=== PATIENT | male | born 1965 | race Two or more races ===

== ENCOUNTER 2017-01-14 08:58 | Emergency (ER) | payer OTHER ==
[2017-01-14 09:07] VITALS: BP 143/96; PULSE 90; TEMP 97.7; BMI 26.4
[2017-01-14] MEDS ORDERED: CYCLOBENZAPRINE HCL 10 MG TABLET (FP) PO ONE (10:05)
[2017-01-14] MEDS ORDERED: KETOROLAC TROMETHAMINE 60 MG/2 ML VIAL IM ONE (10:05)
[2017-01-14] MEDS ORDERED: KETOROLAC TROMETHAMINE 60 MG/2 ML VIAL ONE (10:09)
[2017-01-14] MEDS ORDERED: CYCLOBENZAPRINE HCL 10 MG TABLET (FP) ONE (10:10)
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
== END 2017-01-14 11:25 | disposition home or self-care (01) ==
LOC: JERFT 08:58
PROC: 3E0233Z Introduction of Anti-inflammatory into Muscle, Percutaneous Approach (ICD-10-PCS; principal; 2017-01-14)
DX: M54.2 Cervicalgia (principal); M54.5 Low back pain; F17.210 Nicotine dependence, cigarettes, uncomplicated; V43.52XA Car driver injured in collision with other type car in traffic accident, initial encounter; Y92.414 Local residential or business street as the place of occurrence of the external cause; Y93.89 Activity, other specified; Y99.9 Unspecified external cause status
CPT/HCPCS: 72050-TC; 72100-TC; 72170-TC; 99281-25

== ENCOUNTER 2019-08-16 09:24 | Emergency (ER) | payer OTHER ==
[2019-08-16 09:27] VITALS: BMI 25.1
--- NOTE | 2019-08-16 10:22 | PDOC ---
History of Present Illness - General Chief Complaint: Chest Pain Stated Complaint: CHEST PAIN Time Seen by Provider: 08/16/19 10:22 History Source: Patient Exam Limitations: No Limitations - History of Present Illness Initial Comments: 08/16/19 10:34 54yM w PMHx DM HTN HLD herniated disk BPH current smoker presenting w 1wk progressive worsening L sided sharp stabbing chest pain and L arm weakness/mild pain/paresthesias. Relieved w exertion. Not associated w position. Never had this kind of pain before. Took gabapentin w/o relief. Doesn't remember name of service consultant, workup 6mo ago negative. Denies fever, nausea/vomiting, cough, SOB Past History - Past Medical History Allergies/Adverse Reactions: Allergies Allergy/AdvReac Type Severity Reaction Status Date / Time No Known Allergies Allergy Verified 08/16/19 09:27 Home Medications: Ambulatory Orders Budesonide/Formeterol Fumarate [SYMBICORT 160/4.5mcg -] 1 inh PO BID 08/16/19 Ertugliflozin Pidolate [Steglatro] 5 mg PO ASDIR 08/16/19 Glipizide 5 mg PO ASDIR 08/16/19 Lisinopril 5 mg PO DAILY 08/16/19 Naproxen [Naprosyn -] 250 mg PO BID #10 tablet 08/16/19 Sitagliptin Phos/Metformin HCl [Janumet 50-1,000 mg Tablet] 1 tab PO BID Tamsulosin HCl [Flomax] 0.4 mg PO DAILY 08/16/19 COPD: Yes Diabetes: Yes (niddm) Other medical history: disc problems back - Psycho Social/Smoking Cessation Hx Smoking History: Never smoked Have you smoked in the past 12 months: Yes Number of Cigarettes Smoked Daily: 5 'Breaking Loose' booklet given: 01/14/17 Hx Alcohol Use: No Drug/Substance Use Hx: No Substance Use Type: None Review of Systems - Review of Systems Constitutional: No: Chills, Fever HEENTM: No: Eye Pain, Nose Pain, Throat Pain Respiratory: No: Cough, Shortness of Breath Cardiac (ROS): Yes: Chest Pain. No: Palpitations ABD/GI: No: Abdominal Distended, Constipated, Diarrhea, Nausea, Vomiting : No: Burning, Dysuria Musculoskeletal: No: Back Pain, Joint Pain Integumentary: No: Bruising, Flushing Neurological: No: Headache, Seizure Psychiatric: No: Anxiety, Depression Endocrine: No: Intolerance to Cold, Intolerance to Heat Hematologic/Lymphatic: No: Anemia, Blood Clots *Physical Exam - Vital Signs Last Vital Signs Temp Pulse Resp BP Pulse Ox 97.8 F 106 H 20 156/92 100 08/16/19 09:26 08/16/19 09:26 08/16/19 09:26 08/16/19 09:26 08/16/19 09:26 - Physical Exam General Appearance: Yes: Nourished, Appropriately Dressed. No: Apparent Distress HEENT: positive: EOMI, BHANU, Normal Voice Respiratory/Chest: positive: Lungs Clear, Normal Breath Sounds. negative: Chest Tender, Respiratory Distress, Crackles, Rales, Rhonchi, Stridor, Wheezing Cardiovascular: positive: Regular Rhythm, Regular Rate, S1, S2. negative: Edema , Murmur Gastrointestinal/Abdominal: positive: Normal Bowel Sounds, Flat, Soft. negative : Tender, Organomegaly Extremity: positive: Normal Capillary Refill Integumentary: positive: Normal Color. negative: Dry, Warm Neurologic: positive: clinical pharmacy manager II-XII NML intact, Fully Oriented, Alert, Normal Mood/ Affect, Normal Response, Motor Strength 5/5, Responsive. negative: Numbness, Sensory Deficit, Confused, Disoriented Heart Score/ECG Review - History History: Slightly suspicious - Electrocardiogram EKG: Normal - Age Age: 45-65 - Risk Factors Risk Factors Heart Score: Yes Hx Hypercholesterolemia, Yes Hx Hypertension, Yes Hx Diabetes, Yes Smoking History, No Hx Obesity Based on the list above the patient has:: >/=3 risk factors or Hx atherosclerotic disease - Troponin Troponin: </= normal limit - Score Heart Score - Total: 3 ED Treatment Course - LABORATORY CBC & Chemistry Diagram: 08/16/19 10:50 08/16/19 10:50 - ADDITIONAL ORDERS Additional order review: Laboratory Results 08/16/19 08/16/19 10:50 10:50 Sodium 137 Potassium 4.9 Chloride 107 Carbon Dioxide 23 Anion Gap 7 L BUN 16.0 Creatinine 0.7 Est GFR (CKD-EPI)AfAm 124.00 Est GFR (CKD-EPI)NonAf 106.99 Random Glucose 200 H Calcium 9.3 Total Bilirubin 0.2 AST 111 H ALT 85 H Alkaline Phosphatase 72 Creatine Kinase 1978 H Troponin I < 0.02 Total Protein 7.4 Albumin 3.9 08/16/19 10:50 RBC 5.03 MCV 90.2 MCHC 33.4 RDW 13.7 MPV 9.0 Neutrophils % 64.4 Lymphocytes % 25.0 Monocytes % 8.2 Eosinophils % 1.9 Basophils % 0.5 - RADIOLOGY Radiology Studies Ordered: Category Date Time Status CHEST PA & LAT [RAD] Stat Radiology 08/16/19 10:33 Completed - Medications Given in the ED: ED Medications Discontinued Medications Generic Name Dose Route Start Last Admin Trade Name Bernabeq PRN Reason Stop Dose Admin Aspirin 325 mg 08/16/19 10:33 08/16/19 10:45 Asa - PO 08/16/19 10:34 325 mg ONCE ONE Administration Diazepam 2 mg 08/16/19 10:58 08/16/19 11:34 Valium - PO 08/16/19 10:59 2 mg ONCE ONE Administration Sodium Chloride 1,000 ml 08/16/19 11:00 08/16/19 11:35 Normal Saline - IV 08/16/19 11:01 1,000 ml ONCE ONE Administration Medical Decision Making - Medical Decision Making 08/16/19 10:39 EKG NSR, HR 98, QTc 423, no ST changes CXR clear lungs, normal heart size WBC 11, AST 110, ALT 85 --- 54yM w PMHx DM HTN HLD herniated disk BPH current smoker presenting w 1wk progressive worsening L sided sharp stabbing chest pain and L arm weakness. No neuro deficits on exam Likely MSK. Low concern for ACS (no ST changes, neg trop) vs PNA (clear lungs) vs CVA (no focal neuro deficits) Given 324 aspirin, valium, 1L NS DC w cards, neuro f/u Discharge - Discharge Information Problems reviewed: Yes Clinical Impression/Diagnosis: Atypical chest pain Rhabdomyolysis Qualifiers: Rhabdomyolysis type: non-traumatic Qualified Code(s): M62.82 - Rhabdomyolysis Condition: Good Disposition: HOME - Admission No - Additional Discharge Information Prescriptions: Naproxen [Naprosyn -] 250 mg PO BID #10 tablet - Follow up/Referral Referrals: Mt Michaels MD [Staff Physician] - - Patient Discharge Instructions Patient Printed Discharge Instructions: DI for Chest Pain Additional Instructions: Take the prescribed medication if you have pain Follow up with your service consultant regarding your chest pain. See the referred neurologist if you continue to have arm weakness. - Post Discharge Activity
[2019-08-16] MEDS ORDERED: ASPIRIN 325 MG TABLET PO ONE (10:33)
[2019-08-16] MEDS ORDERED: ASPIRIN 81 MG CHEWABLE TABLETS ONE (10:42)
[2019-08-16] MEDS ORDERED: diazePAM 2 MG TABLET PO ONE (10:58)
[2019-08-16] MEDS ORDERED: SODIUM CHLORIDE 0.9% 500 ML INFUS.BAG IV ONE (11:00)
[2019-08-16 11:16] LABS: BASO % 0.5 % (0-2.0); EOS % 1.9 % (0-4.5); HEMATOCRIT 45.4 % (35.4-49); HEMOGLOBIN 15.2 GM/dL (11.7-16.9); MCH 30.2 pg (25.7-33.7); MCHC 33.4 g/dl (32.0-35.9); MEAN CELL VOLUME 90.2 fl (80-96); MONO % 8.2 % (3.8-10.2); NEUT % 64.4 % (42.8-82.8); PLATELET COUNT 327 K/MM3 (134-434); RBC 5.03 M/mm3 (4.00-5.60); RDW 13.7 % (11.9-15.9)
[2019-08-16] MEDS ORDERED: diazePAM 2 MG TABLET ONE (11:29)
[2019-08-16 11:50] LABS: ALBUMIN 3.9 g/dl (3.4-5.0); BILIRUBIN,TOTAL 0.2 mg/dL (0.2-1); CALCIUM 9.3 mg/dL (8.5-10.1); CREATININE 0.7 mg/dL (0.55-1.3); POTASSIUM 4.9 mmol/L (3.5-5.1); TOT PROT 7.4 g/dl (6.4-8.2)
--- NOTE | 2019-08-16 12:02 | PDOC ---
Attending Attestation - Resident Resident Name: ArmidaRemi - ED Attending Attestation I have performed the following: I have examined & evaluated the patient, The case was reviewed & discussed with the resident, I agree w/resident's findings & plan, Exceptions are as noted - HPI HPI: 08/16/19 12:00 54yoM prenset w/ 1 week of constant sensation of chest pain that is stabbing and radiating down L arm. Pt is pending a disc herniation repair, called his orthopedist who sent him to the ER for evaluation. No sob, no palps, no recent surgery, no recent travel, no cig. - Physicial Exam PE: 08/16/19 12:00 NAD,well appearing rrr ctabl soft ntnd A&O x 3 - Medical Decision Making 08/16/19 12:01 54yoM w/ constant chest pain x 1 week, likely MSK, will r/o pulm process, no e/ o [place] on EKG. - labs -ekg - cxr - dispo, can f/u w/ PMD if cleared.
[2019-08-16 12:23] VITALS: BP 148/90; PULSE 100; TEMP 97.6
--- NOTE | 2019-08-18 17:27 | EKG ---
Test Reason : Blood Pressure : / mmHG Vent. Rate : 098 BPM Atrial Rate : 098 BPM P-R Int : 154 ms QRS Dur : 086 ms QT Int : 332 ms P-R-T Axes : 061 024 033 degrees QTc Int : 423 ms NORMAL SINUS RHYTHM NORMAL ECG NO PREVIOUS ECGS AVAILABLE BASELINE ARTIFACT Confirmed by AYAN MCCLURE, ALVARO ([id number]) on 08/18/2019 5:27:06 PM Referred By: Confirmed By:ALVARO BOTELLO MD
== END 2019-08-16 12:28 | disposition home or self-care (01) ==
LOC: JER 09:24
DX: R07.89 Other chest pain (principal); M62.82 Rhabdomyolysis; I10 Essential (primary) hypertension; E78.5 Hyperlipidemia, unspecified; E11.9 Type 2 diabetes mellitus without complications; Z79.84 Long term (current) use of oral hypoglycemic drugs; N40.0 Benign prostatic hyperplasia without lower urinary tract symptoms; Z87.39 Personal history of other diseases of the musculoskeletal system and connective tissue
CPT/HCPCS: 36415; 71046-TC-FY; 80053; 82550; 82553; 84484; 85025; 93005; 93010; 99285-25